=== PATIENT | female | born 1945 | race Caucasian/White ===

== ENCOUNTER 2023-11-28 10:59 | Emergency (ER) | payer MEDICARE, SELFPAY ==
[2023-11-28 11:00] VITALS: BP 145/71; PULSE 72; RESP 15; TEMP 36.6; O2SAT 96; BMI 34.0
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
== END 2023-11-28 13:03 | disposition home or self-care (01) ==
LOC: ED 13:02
PROVIDERS: Emergency Provider Emergency Medicine; Visit Provider Emergency Medicine
DX: S20.219A Contusion of unspecified front wall of thorax, initial encounter (principal); Y92.410 Unspecified street and highway as the place of occurrence of the external cause; V43.64XA Car passenger injured in collision with van in traffic accident, initial encounter; W22.10XA Striking against or struck by unspecified automobile airbag, initial encounter
CPT/HCPCS: 71046; 99282